=== PATIENT | female | born 1980 | race Two or more races ===

== ENCOUNTER 2016-11-21 00:07 | Emergency (ER) | payer BC ==
[~2016-11-21] VITALS: Ht 160 cm; Wt 61.2 kg
--- NOTE | 2016-11-21 00:25 | NUR ---
MSE DONE BY IVÁN AT BEDSIDE. A&O X4.
[2016-11-21] MEDS ORDERED: VITAMIN D (00:28)
--- NOTE | 2016-11-21 00:45 | NUR ---
Patient discharged to home in stable conditon. Written and verbal after care instructions given. Patient verbalizes understanding of instructions. Taken by miguel.
== END 2016-11-21 00:48 | disposition home or self-care (01) ==
LOC: ER 00:11
DX: R00.2 Palpitations (principal)
CPT/HCPCS: 93005; A4663

== ENCOUNTER 2017-01-08 16:15 | Emergency (ER) | payer BC, MEDICAID ==
[~2017-01-08] VITALS: Ht 160 cm; Wt 59.9 kg
[~2017-01-08 16:15] MED LIST: VITAMIN D
--- NOTE | 2017-01-08 16:28 | NUR ---
ERMD AT THE BEDSIDE FOR EVAL AND EXAM.
[2017-01-08 16:49] LABS: BASOPHILS # (AUTO) 0.1 K/uL (0.0-8.0); BASOPHILS % (AUTO) 0.6 % (0.0-2.0); EOSINOPHILS # (AUTO) 0.4 K/uL (0.0-0.7); EOSINOPHILS % (AUTO) 3.6 % (0.0-7.0); HEMATOCRIT 42.9 % (37-47); HEMOGLOBIN 14.1 G/DL (12.0-16.0); LYMPHOCYTES % (AUTO) 25.1 % (20.5-51.5); MEAN CORPUSCULAR HEMOGLOBIN 29.6 UUG (27.0-31.0); MEAN CORPUSCULAR HGB CONC 33 g/dL (32.0-37.0); MEAN CORPUSCULAR VOLUME 90.3 FL (81.0-99.0); MONOCYTES # (AUTO) 0.6 K/UL (0.1-1.30); MONOCYTES % (AUTO) 5.4 % (0.0-11.0); NEUTROPHILS # (AUTO) 7.8 K/UL (1.8-8.9); NEUTROPHILS % (AUTO) 65.3 % (38.5-71.5); PLATELET COUNT (AUTO) 325 K/UL (150-450); RED BLOOD CELL COUNT(AUTO) 4.75 MIL/UL (4.2-5.4); WHITE BLOOD COUNT (AUTO) 11.9 K/UL (4.0-11.2)
[2017-01-08 16:57] LABS: CREATININE 0.8 mg/dL (0.6-1.3); POTASSIUM 3.9 mmol/L (3.5-5.1)
[2017-01-08 17:01] LABS: *BILIRUBIN,URIN NEGATIVE (NEGATIVE); *BLOOD, URINE Trace-intact (NEGATIVE); *CLARITY,URINE CLEAR (CLEAR); *COLOR,URINE YELLOW (YELLOW); *KETONES,URINE NEGATIVE (NEGATIVE); *PROTEIN,URINE NEGATIVE (NEGATIVE); *URINE HCG, QUAL NEGATIVE (NEGATIVE); *UROBILINOGEN,URINE 0.2 E.U./dl (NORMAL); LEUKOCYTE ESTERASE ,URINE NEGATIVE (NEGATIVE); NITRITE, URINE NEGATIVE (NEGATIVE); UGLUCOSE NEGATIVE (NEGATIVE)
[2017-01-08 17:03] LABS: BILIRUBIN,DIRECT 0.1 mg/dL (0.0-0.2); BILIRUBIN,TOTAL 0.5 mg/dL (0.2-1.0)
[2017-01-08 17:06] LABS: BACTERIA,URINE FEW /HPF (NONE SEEN); SQUAMOUS EPITHELIAL CELL,UR FEW /HPF (NONE SEEN); WBC,URINE 0-3 /HPF (0-3)
[2017-01-08 17:32] VITALS: BP 122/70
--- NOTE | 2017-01-08 17:32 | NUR ---
IV removed. Catheter intact and site benign. Pressure and 4x4 gauze applied to site. No bleeding noted.
--- NOTE | 2017-01-08 17:33 | NUR ---
Patient discharged to home in stable conditon. Written and verbal after care instructions given. Patient verbalizes understanding of instructions.
== END 2017-01-08 17:33 | disposition home or self-care (01) ==
LOC: ER 16:36
DX: H81.399 Other peripheral vertigo, unspecified ear (principal)
CPT/HCPCS: 36415; 70030-TC; 84443; 84703; 85025; 85730; 93005; A4663; J0780; J7030; J8597

== ENCOUNTER 2017-05-04 16:05 | Emergency (ER) | payer BC, MEDICAID ==
[~2017-05-04] VITALS: Ht 160 cm; Wt 59.9 kg
--- NOTE | 2017-05-04 17:45 | NUR ---
PATIENT WAS SEEN AND EVAL DR HARO AT ROOM 02B.
[2017-05-04] MEDS ORDERED: methylPREDNISolone ACETATE 40 MG VIAL IM ONE (18:00)
--- NOTE | 2017-05-04 18:03 | NUR ---
Patient discharged to home in stable conditon. Written and verbal after care instructions given. Patient verbalizes understanding of instructions.
[2017-05-04] MEDS ORDERED: methylPREDNISolone ACETATE 40 MG VIAL ONE (18:08)
== END 2017-05-04 18:08 | disposition home or self-care (01) ==
LOC: ER 16:05
DX: J45.909 Unspecified asthma, uncomplicated (principal)
CPT/HCPCS: 96372; 99283; A4663; J1030

== ENCOUNTER 2017-05-25 02:47 | Emergency (ER) | payer BC, OTHER ==
[~2017-05-25] VITALS: Ht 162.6 cm; Wt 59.9 kg
--- NOTE | 2017-05-25 02:47 | NUR ---
Pt walked into ER with , c/o chestpain on the neck and shoulder, pressure type of pain.
--- NOTE | 2017-05-25 03:14 | NUR ---
at bedside for MSE.
[2017-05-25 03:27] LABS: BASOPHILS # (AUTO) 0.1 K/uL (0.0-8.0); BASOPHILS % (AUTO) 0.7 % (0.0-2.0); EOSINOPHILS # (AUTO) 0.7 K/uL (0.0-0.7); EOSINOPHILS % (AUTO) 5.8 % (0.0-7.0); HEMATOCRIT 40.1 % (31.2-41.9); HEMOGLOBIN 13.5 g/dL (10.9-14.3); LYMPHOCYTES # (AUTO) 3.8 K/uL (20.0-40.0); LYMPHOCYTES % (AUTO) 31.4 % (20.5-51.5); MEAN CORPUSCULAR HEMOGLOBIN 30.1 uug (24.7-32.8); MEAN CORPUSCULAR HGB CONC 34 g/dL (32.3-35.6); MEAN CORPUSCULAR VOLUME 89.7 fL (75.5-95.3); MONOCYTES # (AUTO) 0.9 K/uL (2.0-10.0); MONOCYTES % (AUTO) 7.8 % (0.0-11.0); NEUTROPHILS # (AUTO) 6.6 K/uL (1.8-8.9); NEUTROPHILS % (AUTO) 54.3 % (38.5-71.5); PLATELET COUNT (AUTO) 294 K/uL (179-408); RED BLOOD CELL COUNT(AUTO) 4.47 MIL/uL (3.63-4.92); WHITE BLOOD COUNT (AUTO) 12.2 K/uL (3.8-11.8)
[2017-05-25 03:33] LABS: ETHANOL < 3 MG/DL (0-0)
[2017-05-25 03:45] LABS: THYROID STIMULATING HORMONE 3.343 mIU/mL (0.358-3.740)
[2017-05-25 03:46] LABS: CREATININE 0.7 mg/dL (0.6-1.3); POTASSIUM 3.7 mmol/L (3.5-5.1)
[2017-05-25] MEDS ORDERED: IV NORMAL SALINE 100 ML ONE (03:55)
[2017-05-25] MEDS ORDERED: IOHEXOL 350 100 ML INFUS..BTL ONE (03:55)
--- NOTE | 2017-05-25 04:02 | NUR ---
Pt out of ER for CT via [facility].
--- NOTE | 2017-05-25 04:18 | NUR ---
Pt back to ER from CT via [facility].
[2017-05-25 04:45] LABS: *URINE HCG, QUAL NEGATIVE (NEGATIVE)
[2017-05-25] MEDS ORDERED: ONDANSETRON 4 MG/2 ML VIAL IV ONE (04:45)
[2017-05-25] MEDS ORDERED: MORPHINE SULFATE 2 MG/1 ML DISP.SYRIN IV ONE (04:45)
[2017-05-25] MEDS ORDERED: MORPHINE SULFATE 4 MG/1 ML DISP.SYRIN ONE (04:53)
[2017-05-25] MEDS ORDERED: ONDANSETRON 4 MG/2 ML VIAL ONE (04:54)
[2017-05-25 04:59] LABS: *AMPHETAMINE, URINE NEGATIVE (NEGATIVE); *BARBITURATE, URINE NEGATIVE (NEGATIVE); *CANNABINOID, URINE NEGATIVE (NEGATIVE); *COCCAINE, URINE NEGATIVE (NEGATIVE); *OPIATE, URINE NEGATIVE (NEGATIVE); *PHENCYCLIDINE SCREEN,URINE NEGATIVE (NEGATIVE)
--- NOTE | 2017-05-25 06:18 | NUR ---
Patient discharged to home in stable conditon. Written and verbal after care instructions given. Patient verbalizes understanding of instructions. IV discontinued. VSS. No acute signs of distress. Patient ambulated out of ER with , all belongings taken, patient will drive via private vehicle.
[2017-05-25 06:19] VITALS: BP 119/69
== END 2017-05-25 06:21 | disposition home or self-care (01) ==
LOC: ER 02:51
DX: R07.89 Other chest pain (principal)
CPT/HCPCS: 36415; 70030-TC; 80307; 84443; 84703; 85025; 85730; 93005; A4663; G0480; J2270; J2405; J3490; Q9967

== ENCOUNTER 2017-10-27 21:24 | Emergency (ER) | payer OTHER ==
[~2017-10-27] VITALS: Ht 162.6 cm; Wt 59.9 kg
--- NOTE | 2017-10-27 22:19 | NUR ---
Dr. Ankur DA SILVA MD at bedside for MSE.
[2017-10-27] MEDS ORDERED: KETOROLAC TROMETHAMINE 15 MG INJ IV ONE (22:30)
[2017-10-27] MEDS ORDERED: KETOROLAC TROMETHAMINE 30 MG INJ IM ONE (22:30)
[2017-10-27] MEDS ORDERED: KETOROLAC TROMETHAMINE 30 MG INJ ONE (22:38)
[2017-10-27 22:47] LABS: BASOPHILS # (AUTO) 0.1 K/uL (0.0-8.0); BASOPHILS % (AUTO) 0.6 % (0.0-2.0); EOSINOPHILS # (AUTO) 0.2 K/uL (0.0-0.7); EOSINOPHILS % (AUTO) 1.2 % (0.0-7.0); HEMATOCRIT 40.4 % (31.2-41.9); HEMOGLOBIN 13.9 g/dL (10.9-14.3); LYMPHOCYTES % (AUTO) 24.1 % (20.5-51.5); MEAN CORPUSCULAR HEMOGLOBIN 30.8 uug (24.7-32.8); MEAN CORPUSCULAR HGB CONC 34 g/dL (32.3-35.6); MEAN CORPUSCULAR VOLUME 89.5 fL (75.5-95.3); MONOCYTES # (AUTO) 0.7 K/uL (2.0-10.0); MONOCYTES % (AUTO) 5.5 % (0.0-11.0); NEUTROPHILS # (AUTO) 8.5 K/uL (1.8-8.9); NEUTROPHILS % (AUTO) 68.6 % (38.5-71.5); PLATELET COUNT (AUTO) 333 K/uL (179-408); RED BLOOD CELL COUNT(AUTO) 4.51 MIL/uL (3.63-4.92); WHITE BLOOD COUNT (AUTO) 12.4 K/uL (3.8-11.8)
[2017-10-27 22:49] LABS: *BILIRUBIN,URIN NEGATIVE (NEGATIVE); *BLOOD, URINE 2+ (NEGATIVE); *CLARITY,URINE CLEAR (CLEAR); *COLOR,URINE YELLOW (YELLOW); *KETONES,URINE NEGATIVE (NEGATIVE); *PROTEIN,URINE NEGATIVE (NEGATIVE); *UROBILINOGEN,URINE 0.2 E.U./dl (NORMAL); LEUKOCYTE ESTERASE ,URINE NEGATIVE (NEGATIVE); NITRITE, URINE NEGATIVE (NEGATIVE); PH,URINE 5.5 (5.0-8.0); UGLUCOSE NEGATIVE (NEGATIVE)
[2017-10-27 23:01] LABS: BACTERIA,URINE NONE SEEN /HPF (NONE SEEN); SQUAMOUS EPITHELIAL CELL,UR FEW /HPF (NONE SEEN); WBC,URINE NONE SEEN /HPF (0-3)
[2017-10-27 23:09] LABS: BILIRUBIN,DIRECT 0.1 mg/dL (0.0-0.2); BILIRUBIN,TOTAL 0.3 mg/dL (0.2-1.0); CREATININE 0.8 mg/dL (0.6-1.3); POTASSIUM 3.8 mmol/L (3.5-5.1); TOTAL PROTEIN, SERUM 7.2 g/dL (6.4-8.2)
--- NOTE | 2017-10-27 23:31 | NUR ---
Pt went down to radiology dept for CT scan.
--- NOTE | 2017-10-27 23:51 | NUR ---
Pt back from CT scan.
--- NOTE | 2017-10-28 01:03 | NUR ---
Patient discharged to home in stable conditon. Written and verbal after care instructions given. Patient verbalizes understanding of instructions. Pt ambulated out of ER in steady gait with partner. All belongings with pt. VSS. No acute distress noted.
[2017-10-28 01:05] VITALS: BP 139/81
== END 2017-10-28 01:05 | disposition home or self-care (01) ==
LOC: ER 21:27
DX: M54.5 Low back pain (principal); R10.30 Lower abdominal pain, unspecified; Z79.899 Other long term (current) drug therapy
CPT/HCPCS: 36415; 74176; 80048; 80076; 81001; 84703; 85025; 96372; 99285; A4663; J1885

== ENCOUNTER 2018-06-18 20:35 | Emergency (ER) | payer OTHER ==
[~2018-06-18] VITALS: Ht 157.5 cm; Wt 61.2 kg
--- NOTE | 2018-06-18 21:43 | NUR ---
Patient in bed, pending ER MD evaluation. VSS
--- NOTE | 2018-06-18 22:49 | NUR ---
Patient in bed, pending ER MD evaluation
--- NOTE | 2018-06-18 23:05 | NUR ---
Patient taken to CT via gurney with transporter.
--- NOTE | 2018-06-18 23:20 | NUR ---
Patient back from CT. No acute distress noted. VSS
--- NOTE | 2018-06-18 23:55 | NUR ---
REKHA BORDEN at bedside for patient update.
--- NOTE | 2018-06-19 00:12 | NUR ---
Patient discharged to home in stable conditon. Written and verbal after care instructions given. Patient verbalizes understanding of instructions. Ambulated from ER with stable gait. All belongings with patient.
[2018-06-19 00:13] VITALS: BP 131/78
== END 2018-06-19 00:14 | disposition home or self-care (01) ==
LOC: ER 20:35
DX: S06.0X0A Concussion without loss of consciousness, initial encounter (principal); W01.198A Fall on same level from slipping, tripping and stumbling with subsequent striking against other object, initial encounter; Y93.89 Activity, other specified; Y92.89 Other specified places as the place of occurrence of the external cause; Y99.8 Other external cause status
CPT/HCPCS: 70450; A4663

== ENCOUNTER 2018-10-26 22:26 | Emergency (ER) | payer BC, OTHER ==
[~2018-10-26] VITALS: Ht 162.6 cm; Wt 63.5 kg
--- NOTE | 2018-10-26 22:45 | NUR ---
Dr. Mederos at bedside for MSE.
[2018-10-26] MEDS ORDERED: HYDROMORPHONE 1 MG/1 ML DISP.SYRIN IV ONE (23:00)
[2018-10-26] MEDS ORDERED: IV NORMAL SALINE 1000 ML BAG IV ONE (23:00)
[2018-10-26] MEDS ORDERED: ONDANSETRON 4 MG/2 ML VIAL IV ONE (23:00)
[2018-10-26] MEDS ORDERED: ONDANSETRON 4 MG/2 ML VIAL ONE (23:01)
[2018-10-26] MEDS ORDERED: HYDROMORPHONE 1 MG/1 ML DISP.SYRIN ONE (23:01)
[2018-10-26 23:03] LABS: BASOPHILS # (AUTO) 0.1 K/uL (0.0-8.0); BASOPHILS % (AUTO) 0.6 % (0.0-2.0); EOSINOPHILS # (AUTO) 0.2 K/uL (0.0-0.7); EOSINOPHILS % (AUTO) 1.5 % (0.0-7.0); HEMOGLOBIN 13.4 g/dL (10.9-14.3); LYMPHOCYTES # (AUTO) 2.3 K/uL (20.0-40.0); LYMPHOCYTES % (AUTO) 19.4 % (20.5-51.5); MEAN CORPUSCULAR HEMOGLOBIN 30.2 uug (24.7-32.8); MEAN CORPUSCULAR HGB CONC 34 g/dL (32.3-35.6); MONOCYTES # (AUTO) 0.6 K/uL (2.0-10.0); MONOCYTES % (AUTO) 5.4 % (0.0-11.0); NEUTROPHILS # (AUTO) 8.6 K/uL (1.8-8.9); NEUTROPHILS % (AUTO) 73.1 % (38.5-71.5); PLATELET COUNT (AUTO) 308 K/uL (179-408); RED BLOOD CELL COUNT(AUTO) 4.45 MIL/uL (3.63-4.92); WHITE BLOOD COUNT (AUTO) 11.8 K/uL (3.8-11.8)
[2018-10-26 23:22] LABS: CREATININE 0.7 mg/dL (0.6-1.3); POTASSIUM 3.7 mmol/L (3.5-5.1)
[2018-10-26 23:28] LABS: BILIRUBIN,DIRECT 0.1 mg/dL (0.0-0.2); BILIRUBIN,TOTAL 0.6 mg/dL (0.2-1.0); TOTAL PROTEIN, SERUM 7.2 g/dL (6.4-8.2)
--- NOTE | 2018-10-27 00:29 | NUR ---
Patient discharged to home in stable conditon. Written and verbal after care instructions given. Patient verbalizes understanding of instructions. Pt ambulated out of ER with steady gait, no acute signs of distress, VSS, all belongings taken, IV site discontinued, to be driven home by via private vehicle.
[2018-10-27 00:31] VITALS: BP 110/67
== END 2018-10-27 00:31 | disposition home or self-care (01) ==
LOC: ER 22:26
DX: E86.0 Dehydration (principal); G43.909 Migraine, unspecified, not intractable, without status migrainosus; Z79.899 Other long term (current) drug therapy
CPT/HCPCS: 36415; 80048; 80076; 83690; 85025; 96361; 96374; 96375; 99283; J1170; J2405; A4663; J7030

== ENCOUNTER 2019-01-11 13:31 | Emergency (ER) | payer BC ==
[~2019-01-11] VITALS: Ht 160 cm; Wt 68.0 kg
[2019-01-11] MEDS ORDERED: IV NORMAL SALINE 1000 ML BAG IV ONE (14:00)
[2019-01-11] MEDS ORDERED: METOCLOPRAMIDE HCL 10 MG/2 ML VIAL IV ONE (14:00)
[2019-01-11] MEDS ORDERED: ACETAMINOPHEN ES 500 MG TABLET PO ONE (14:00)
[2019-01-11] MEDS ORDERED: diphenhydrAMINE 50 MG/1 ML VIAL IV ONE (14:00)
[2019-01-11] MEDS ORDERED: ACETAMINOPHEN ES 500 MG TABLET ONE (14:09)
[2019-01-11 14:10] LABS: BASOPHILS % (AUTO) 0.4 % (0.0-2.0); EOSINOPHILS # (AUTO) 0.1 K/uL (0.0-0.7); EOSINOPHILS % (AUTO) 0.8 % (0.0-7.0); HEMATOCRIT 41.2 % (31.2-41.9); HEMOGLOBIN 13.5 g/dL (10.9-14.3); LYMPHOCYTES % (AUTO) 16.7 % (20.5-51.5); MEAN CORPUSCULAR HEMOGLOBIN 30.2 uug (24.7-32.8); MEAN CORPUSCULAR HGB CONC 33 g/dL (32.3-35.6); MEAN CORPUSCULAR VOLUME 92.1 fL (75.5-95.3); MONOCYTES # (AUTO) 0.5 K/uL (2.0-10.0); MONOCYTES % (AUTO) 4.3 % (0.0-11.0); NEUTROPHILS # (AUTO) 9.3 K/uL (1.8-8.9); NEUTROPHILS % (AUTO) 77.8 % (38.5-71.5); PLATELET COUNT (AUTO) 304 K/uL (179-408); RED BLOOD CELL COUNT(AUTO) 4.48 MIL/uL (3.63-4.92)
[2019-01-11] MEDS ORDERED: METOCLOPRAMIDE HCL 10 MG/2 ML VIAL ONE (14:10)
[2019-01-11] MEDS ORDERED: diphenhydrAMINE 50 MG/1 ML VIAL ONE (14:11)
[2019-01-11 14:15] LABS: CREATININE 0.7 mg/dL (0.6-1.3); POTASSIUM 3.7 mmol/L (3.5-5.1)
--- NOTE | 2019-01-11 15:25 | NUR ---
Patient discharged to home in stable conditon. Written and verbal after care instructions given. Patient verbalizes understanding of instructions.pt walks in steady gait. pt dsays feels better. pt denies any pain or nausea at this time. pt not driving. pt accompanied
[2019-01-11 15:29] VITALS: BP 119/69
== END 2019-01-11 15:32 | disposition home or self-care (01) ==
LOC: ER 13:31
DX: G43.909 Migraine, unspecified, not intractable, without status migrainosus (principal); Z79.899 Other long term (current) drug therapy
CPT/HCPCS: 36415; 70450; 80048; 84702; 85025; 96374; 96375; 99284; J1200; J2765; A4663; A9150; J7030

== ENCOUNTER 2019-12-01 00:20 | Emergency (ER) | payer BC | END 2019-12-01 00:30 | disposition left against medical advice (07) | LOC: ER 00:22 | DX: Z75.3 Unavailability and inaccessibility of health-care facilities (principal) ==

== ENCOUNTER 2020-08-10 05:10 | Emergency (ER) | payer BC ==
[~2020-08-10] VITALS: Ht 165.1 cm; Wt 61.8 kg
[2020-08-10] MEDS ORDERED: DICYCLOMINE HCL 10 MG CAPSULE PO ONE (05:30)
[2020-08-10] MEDS ORDERED: IV NORMAL SALINE 1000 ML BAG IV ONE (05:30)
[2020-08-10] MEDS ORDERED: MAG HYDROX/AL HYDROX/SIMETH 30 ML LIQUID UDC PO ONE (05:30)
[2020-08-10] MEDS ORDERED: ONDANSETRON 4 MG/2 ML VIAL IV ONE (05:30)
[2020-08-10] MEDS ORDERED: FAMOTIDINE. 20 MG/2 ML VIAL IV ONE ×2 (05:30→05:40)
[2020-08-10] MEDS ORDERED: LIDOCAINE VISCUS 2% 15 ML UDC MM ONE (05:30)
[2020-08-10] MEDS ORDERED: ONDANSETRON 4 MG/2 ML VIAL ONE (05:40)
[2020-08-10 05:41] LABS: BASOPHILS # (AUTO) 0.1 K/uL (0.0-8.0); BASOPHILS % (AUTO) 0.4 % (0.0-2.0); EOSINOPHILS % (AUTO) 0.4 % (0.0-7.0); HEMATOCRIT 39.2 % (31.2-41.9); HEMOGLOBIN 13.3 g/dL (10.9-14.3); LYMPHOCYTES # (AUTO) 2.3 K/uL (20.0-40.0); LYMPHOCYTES % (AUTO) 19.3 % (20.5-51.5); MEAN CORPUSCULAR HGB CONC 34 g/dL (32.3-35.6); MONOCYTES # (AUTO) 0.6 K/uL (2.0-10.0); MONOCYTES % (AUTO) 5.4 % (0.0-11.0); NEUTROPHILS # (AUTO) 8.7 K/uL (1.8-8.9); NEUTROPHILS % (AUTO) 74.5 % (38.5-71.5); PLATELET COUNT (AUTO) 347 K/uL (179-408); WHITE BLOOD COUNT (AUTO) 11.7 K/uL (3.8-11.8)
[2020-08-10] MEDS ORDERED: LIDOCAINE VISCUS 2% 15 ML UDC ONE (05:41)
[2020-08-10] MEDS ORDERED: MAGNESIUM HYDROXIDE 30 ML LIQUID UDC ONE (05:42)
[2020-08-10] MEDS ORDERED: DICYCLOMINE HCL LIQ 10 MG/5 ML UDC ONE (05:45)
[2020-08-10 05:47] LABS: CREATININE 0.7 mg/dL (0.6-1.3); POTASSIUM 3.8 mmol/L (3.5-5.1)
[2020-08-10 05:52] LABS: BILIRUBIN,DIRECT 0.1 mg/dL (0.0-0.2); BILIRUBIN,TOTAL 0.4 mg/dL (0.2-1.0)
[2020-08-10 06:06] LABS: *BILIRUBIN,URIN NEGATIVE (NEGATIVE); *COLOR,URINE YELLOW (YELLOW); *KETONES,URINE 1+ (NEGATIVE); *UROBILINOGEN,URINE 0.2 E.U./dl (NORMAL); LEUKOCYTE ESTERASE ,URINE NEGATIVE (NEGATIVE); NITRITE, URINE NEGATIVE (NEGATIVE); PH,URINE 7.5 (5.0-8.0); UGLUCOSE NEGATIVE (NEGATIVE)
[2020-08-10 06:09] LABS: *BLOOD, URINE TRACE (NEGATIVE); *CLARITY,URINE HAZY (CLEAR)
[2020-08-10 06:10] LABS: *URINE HCG, QUAL NEGATIVE (NEGATIVE); BACTERIA,URINE FEW /HPF (NONE SEEN); SQUAMOUS EPITHELIAL CELL,UR MODERATE /HPF (NONE SEEN); WBC,URINE 0-3 /HPF (0-3)
[2020-08-10] MEDS ORDERED: DICY10CA13 PO (06:14)
[2020-08-10] MEDS ORDERED: ONDA4TAB5 PO (06:14)
[2020-08-10] MEDS ORDERED: FAMO-132 PO (06:14)
[2020-08-10 06:15] LABS: *AMPHETAMINE, URINE NEGATIVE (NEGATIVE); *CANNABINOID, URINE NEGATIVE (NEGATIVE); *COCCAINE, URINE NEGATIVE (NEGATIVE); *OPIATE, URINE NEGATIVE (NEGATIVE); *PHENCYCLIDINE SCREEN,URINE NEGATIVE (NEGATIVE)
[2020-08-10] MEDS ORDERED: DICYCLOMINE HCL LIQ 10 MG/5 ML UDC PO ONE (06:15)
--- NOTE | 2020-08-10 06:26 | NUR ---
Pt. resting in bed, stable, no signs of distress. Pt. reports a reduction in nausea and headache. Pt. at bedside.
--- NOTE | 2020-08-10 06:51 | NUR ---
Patient discharged to home in stable condition. Written and verbal after care instructions given. Patient verbalizes understanding of instructions. Stressed follow up or return to ER for worsening s/s. Vss. All belongings went with pt. Pt. not showing any signs of distress. Pt. instructed to follow up with pcp.
[2020-08-10 06:56] VITALS: BP 110/74
== END 2020-08-10 06:56 | disposition home or self-care (01) ==
LOC: ER 05:17
DX: R10.13 Epigastric pain (principal); R11.2 Nausea with vomiting, unspecified; R51.9 Headache, unspecified; Z87.19 Personal history of other diseases of the digestive system
CPT/HCPCS: 36415; 80048; 80076; 80307; 81001; 83690; 84703; 85025; 96361; 96374; 96375; 99284; J2405; J3490; A4663; J7030

== ENCOUNTER 2020-12-11 22:17 | Emergency (ER) | payer BC ==
[~2020-12-11] VITALS: Ht 165.1 cm; Wt 63.5 kg
[~2020-12-11 22:17] MED LIST changes: +DICY10CA13 PO; +FAMO-132 PO; +ONDA4TAB5 PO
--- NOTE | 2020-12-11 23:10 | NUR ---
Pt here for left sided jaw pain and cp x 30 min [employer]. at bedside.
[2020-12-11] MEDS ORDERED: NITROGLYCERIN OINT 1 GM PACKET TP ONE ×2 (23:30→23:43)
[2020-12-11] MEDS ORDERED: ASPIRIN 325 MG TABLET PO ONE (23:30)
[2020-12-11] MEDS ORDERED: ASPIRIN 325 MG TABLET ONE (23:43)
[2020-12-11 23:44] LABS: HEMATOCRIT 40.2 % (31.2-41.9); MEAN CORPUSCULAR HEMOGLOBIN 30.7 uug (24.7-32.8); MEAN CORPUSCULAR VOLUME 91.6 fL (75.5-95.3); PLATELET COUNT (AUTO) 333 K/uL (179-408)
[2020-12-11 23:45] LABS: CREATININE 0.8 mg/dL (0.6-1.3); POTASSIUM 3.5 mmol/L (3.5-5.1)
[2020-12-11 23:58] LABS: BILIRUBIN,DIRECT 0.2 mg/dL (0.0-0.2); BILIRUBIN,TOTAL 0.6 mg/dL (0.2-1.0)
--- NOTE | 2020-12-12 00:26 | NUR ---
Pt resting in bed. Vss. NAD.
--- NOTE | 2020-12-12 00:45 | NUR ---
Called [facility] to page Dr. Gama Rodriguez.
[2020-12-12 01:20] VITALS: BP 122/76
--- NOTE | 2020-12-12 01:20 | NUR ---
Patient discharged to home in stable condition. Written and verbal after care instructions given. Patient verbalizes understanding of instructions. Stressed follow up or return to ER for worsening s/s. Patient out of ER with steady gait, no acute signs of distress, VSS, all belongings taken, provided with copies of lab and xray results.
== END 2020-12-12 01:22 | disposition home or self-care (01) ==
LOC: ER 22:19
DX: R07.89 Other chest pain (principal); K21.9 Gastro-esophageal reflux disease without esophagitis; Z82.49 Family history of ischemic heart disease and other diseases of the circulatory system
CPT/HCPCS: 36415; 70030-TC; 71045; 85025; 93005

== ENCOUNTER 2021-05-12 01:08 | Emergency (ER) | payer BC ==
[~2021-05-12] VITALS: Ht 165.1 cm; Wt 63.5 kg
--- NOTE | 2021-05-12 01:26 | NUR ---
DR. SANCHEZ AT BEDSIDE, MSE IN PROGRESS.
--- NOTE | 2021-05-12 01:38 | NUR ---
XRAY AT BEDSIDE.
[2021-05-12] MEDS ORDERED: OXYCODONE/APAP 5-325 MG TABLET PO ONE (01:45)
[2021-05-12] MEDS ORDERED: OXYCODONE/APAP 5-325 MG TABLET ONE (02:00)
[2021-05-12 02:22] LABS: CREATININE 0.7 mg/dL (0.6-1.3); HEMATOCRIT 38.5 % (31.2-41.9); MEAN CORPUSCULAR VOLUME 90.3 fL (75.5-95.3); PLATELET COUNT (AUTO) 330 K/uL (179-408); POTASSIUM 4.8 mmol/L (3.5-5.1)
[2021-05-12] MEDS ORDERED: GUAI5SYR4 PO (02:54)
--- NOTE | 2021-05-12 03:05 | NUR ---
Patient discharged to home in stable condition. Written and verbal after care instructions given. Patient verbalizes understanding of instructions. Stressed follow up or return to ER for worsening s/s. Steady gait, no SOB or labored breathing. no changes in LOC. Denies pain/discomfort upon discharge. Accompanied by .
[2021-05-12 03:06] VITALS: BP 140/83
== END 2021-05-12 03:06 | disposition home or self-care (01) ==
LOC: ER 01:13
DX: J40 Bronchitis, not specified as acute or chronic (principal); Z20.822 Contact with and (suspected) exposure to COVID-19; K21.9 Gastro-esophageal reflux disease without esophagitis; Z79.899 Other long term (current) drug therapy
CPT/HCPCS: 36415; 70030-TC; 71045; 85025; 87400; 93005; A4663

== ENCOUNTER 2023-04-14 21:15 | Emergency (ER) | payer BC, MEDICAID ==
[~2023-04-14] VITALS: Ht 160 cm; Wt 63.5 kg
[~2023-04-14 21:15] MED LIST changes: +BENZ-13 PO; +GUAI5SYR4 PO; +IBUP-1490 PO; +IBUP-1955 PO
[2023-04-14] MEDS ORDERED: ONDANSETRON ODT 4 MG TAB.RAPDIS ONE (21:39)
[2023-04-14] MEDS ORDERED: OXYCODONE/APAP 5-325 MG TABLET ONE ×2 (21:39→22:47)
[2023-04-14] MEDS ORDERED: ONDANSETRON ODT 4 MG TAB.RAPDIS SL ONE (21:45)
[2023-04-14] MEDS ORDERED: OXYCODONE/APAP 5-325 MG TABLET PO ONE ×2 (21:45→22:45)
[2023-04-14] MEDS ORDERED: OXYC-133 PO (21:50)
[2023-04-14] MEDS ORDERED: ONDA4TAB11 PO (21:50)
[2023-04-14 22:54] VITALS: BP 116/72; TEMP 98.6; O2SAT 98
== END 2023-04-14 22:58 | disposition home or self-care (01) ==
LOC: ER 21:15
DX: R51.9 Headache, unspecified (principal); R10.9 Unspecified abdominal pain; D25.9 Leiomyoma of uterus, unspecified; N94.6 Dysmenorrhea, unspecified; R11.10 Vomiting, unspecified; K21.9 Gastro-esophageal reflux disease without esophagitis; Z79.1 Long term (current) use of non-steroidal anti-inflammatories (NSAID); Z79.899 Other long term (current) drug therapy; Z20.822 Contact with and (suspected) exposure to COVID-19
CPT/HCPCS: A4606; A4663; Q0162